=== PATIENT | male | born 1975 | race Caucasian/White ===

== ENCOUNTER → 2016-08-22 | Outpatient (CLI) | payer OTHER ==
[2016-08-22 10:14] LABS: BASO % 0.5 %; BASO ABS # 0.05 K/uL (0-0.2); COMPLETE YES; EOS % 6.2 %; HEMATOCRIT 43.1 % (42-52); IG% 0.2 %; LYMPH % 44.5 %; LYMPH ABS # 4.51 K/uL (1.2-3.4); MEAN CELL VOLUME 88.5 fL (80-100); MEAN CORPUSCULAR HEMOGLOBIN 31.4 pg (25-34); MEAN CORPUSCULAR HGB CONC 35.5 g/dl (32-36); MEAN PLATELET VOLUME 8.8 fL (7.4-10.4); MONO % 7.6 %; PLATELET COUNT 247 K/uL (130-400); RED BLOOD COUNT 4.87 M/uL (4.7-6.1); WHITE BLOOD COUNT 10.14 K/uL (4.8-10.8)
[2016-08-22 10:41] LABS: ALT/SGPT 45 U/L (12-78); BLOOD UREA NITROGEN 12 mg/dl (7-18); BUN/CREATININE RATIO 11.6 (10-20); CARBON DIOXIDE 28 mmol/L (21-32); CHLORIDE 103 mmol/L (98-107); CHOLESTEROL 222 mg/dl (0-200); GLUCOSE 103 mg/dl (70-99); POTASSIUM 3.5 mmol/L (3.5-5.1); SODIUM 140 mmol/L (136-145)
[2016-08-22 10:46] LABS: CALCIUM 8.8 mg/dl (8.5-10.1)
[2016-08-22 10:51] LABS: ALB/GLOB RATIO 1.2 (0.9-2); ALKALINE PHOSPHATASE 90 U/L (45-117); AST/SGOT 23 U/L (15-37); CHOLESTEROL/HDL RATIO 6.9; HDL CHOLESTEROL 32 mg/dl; LDL CHOLESTEROL CALCULATED 117 mg/dl; THYROID STIMULATING HORMONE 0.204 uIu/ml (0.300-4.500); TRIGLYCERIDES 363 mg/dl (0-150); VERY LOW DENSITY LIPOPROT CALC 73 mg/dl
== END | disposition home or self-care (01) ==
LOC: C.LAB 09:46
PROVIDERS: ATTEND Internal Medicine
DX: E78.2 Mixed hyperlipidemia (principal); E03.1 Congenital hypothyroidism without goiter; F90.9 Attention-deficit hyperactivity disorder, unspecified type; F32.9 Major depressive disorder, single episode, unspecified

== ENCOUNTER → 2017-02-25 | Outpatient (CLI) | payer OTHER ==
[2017-02-25 05:41] LABS: BASO % 0.6 %; BASO ABS # 0.06 K/uL (0-0.2); COMPLETE YES; EOS % 3.5 %; HEMATOCRIT 47.1 % (42-52); IG% 0.2 %; LYMPH % 24.2 %; MEAN CELL VOLUME 90.1 fL (80-100); MEAN CORPUSCULAR HEMOGLOBIN 32.7 pg (25-34); MEAN CORPUSCULAR HGB CONC 36.3 g/dl (32-36); MEAN PLATELET VOLUME 9.2 fL (7.4-10.4); MONO % 7.6 %; NEUT % 63.9 %; PLATELET COUNT 232 K/uL (130-400); RED BLOOD COUNT 5.23 M/uL (4.7-6.1); WHITE BLOOD COUNT 10.33 K/uL (4.8-10.8)
[2017-02-25 06:10] LABS: ALT/SGPT 50 U/L (12-78); BLOOD UREA NITROGEN 10 mg/dl (7-18); CALCIUM 8.9 mg/dl (8.5-10.1); CARBON DIOXIDE 28 mmol/L (21-32); CHLORIDE 104 mmol/L (98-107); CHOLESTEROL 245 mg/dl (0-200); CREATININE 1.07 mg/dl (0.60-1.40); GLUCOSE 103 mg/dl (70-99); POTASSIUM 4.3 mmol/L (3.5-5.1); SODIUM 137 mmol/L (136-145); TRIGLYCERIDES 454 mg/dl (0-150)
[2017-02-25 06:15] LABS: ALB/GLOB RATIO 1.3 (0.9-2); ALKALINE PHOSPHATASE 93 U/L (45-117); AST/SGOT 27 U/L (15-37); CHOLESTEROL/HDL RATIO 6.8; HDL CHOLESTEROL 36 mg/dl
[2017-02-25 07:06] LABS: ESTIMATED AVERAGE GLUCOSE 114 mg/dl; HA1C FLAG Normal (Normal)
== END | disposition home or self-care (01) ==
LOC: C.LAB 04:54
PROVIDERS: ATTEND Internal Medicine
DX: Z00.00 Encounter for general adult medical examination without abnormal findings (principal); E78.2 Mixed hyperlipidemia; E03.1 Congenital hypothyroidism without goiter; R73.01 Impaired fasting glucose; Z80.42 Family history of malignant neoplasm of prostate

== ENCOUNTER → 2017-05-19 | Outpatient (CLI) | payer OTHER ==
--- NOTE | 2017-05-19 20:18 | DIAGNOSTIC IMAGING REPORT ---
ORBITS FOR MRI HISTORY: 41 years-old Male R/O FOREIGN BODY history of foreign body of the orbits. Clearance for MRI. COMPARISON: None available TECHNIQUE: 3 views of the orbits FINDINGS: No radiopaque foreign body of the orbits identified. Paranasal sinuses appear clear. No facial bone fracture or dislocation. IMPRESSION: No opaque foreign body identified. The above report was generated using voice recognition software. It may contain grammatical, syntax or spelling errors. Electronically signed by: Cory Ayers M.D. 05/19/2017 8:16 PM Dictated Date/Time: 05/19/2017 8:15 PM
--- NOTE | 2017-05-19 23:22 | DIAGNOSTIC IMAGING REPORT ---
LUMBAR SPINE W/O CONTRAST CLINICAL HISTORY: 41 years-old Male with LEFT SIDED LOW BACK PAIN W/SCIATICA, LUMBAR. Chronic low back pain with left lower extremity neuropathy COMPARISON: None. TECHNIQUE: Multiplanar, multi sequence MRI of the lumbar spine was performed without intravenous contrast. FINDINGS: The large [id number] central sterile tech localizer images demonstrate no gross abnormality. No aortic aneurysm or adenopathy identified. Conus medullaris terminates at T12. Signal within the imaged thoracic spinal cord appears unremarkable. The cauda equina also appear to be within normal limits. No focal abnormality of the paraspinal tissues. There is no acute fracture, subluxation, focal bone marrow or soft tissue edema. Disc desiccation noted at L4-L5 and to a lesser extent at L3-L4. T12-L1: No central canal or neural foraminal stenosis. L1-L2: No central canal or neural foraminal stenosis. L2-L3: No central canal or neural foraminal stenosis. L3-L4: Minimal disc desiccation with small posterior disc bulge, mild facet arthrosis with ligamentum flavum thickening. There is flattening of the ventral thecal sac without significant central canal stenosis. Mild bilateral foraminal narrowing. L4-L5: Mild disc desiccation and intervertebral disc space narrowing with small circumferential annular disc bulge and posterior annular fissure. Additionally, there is mild ligamentum flavum thickening. There is mild flattening of the ventral thecal sac with mild bilateral foraminal narrowing. No significant central canal stenosis. 3 mm synovial cyst posterior to the left facet. L5-S1: No central canal or neural foraminal stenosis. IMPRESSION: 1. Mild intervertebral disc space narrowing with small circumferential annular disc bulge and posterior annular fissure at L4-L5 causes mild flattening of the ventral thecal sac along with mild bilateral foraminal narrowing. 2. Minimal disc desiccation with small posterior disc bulge, mild facet arthrosis and ligamentum flavum thickening at L3-L4 causes mild bilateral foraminal narrowing. 3. No high-grade central canal or foraminal stenosis. The above report was generated using voice recognition software. It may contain grammatical, syntax or spelling errors. Electronically signed by: Cory Ayers M.D. 05/19/2017 11:21 PM Dictated Date/Time: 05/19/2017 9:44 PM
== END | disposition home or self-care (01) ==
LOC: C.MRI 19:46
DX: M54.42 Lumbago with sciatica, left side (principal); G89.29 Other chronic pain; M47.816 Spondylosis without myelopathy or radiculopathy, lumbar region

== ENCOUNTER → 2017-06-29 | Outpatient (CLI) | payer OTHER ==
[~2017-06-29] MED LIST: AMPH30TA2 PO; FENO1CAP PO; GABA-112 PO; LEVO137T3 PO; OXYC15TA89 PO; SIMV20TA2 PO
== END | disposition home or self-care (01) ==
LOC: C.LAB 17:35
PROVIDERS: ATTEND Internal Medicine
DX: E03.1 Congenital hypothyroidism without goiter (principal)

== ENCOUNTER 2017-07-06 00:22 | Emergency (ER) | payer OTHER ==
[~2017-07-06] VITALS: Ht 182.9 cm; Wt 95.2 kg
[2017-07-06 00:29] VITALS: TEMP 36.9; Ht 182.9 cm; Wt 95.2 kg
[2017-07-06] MEDS ORDERED: LORAZEPAM 2 MG/ML 1 ML VIAL IV STA (00:46)
[2017-07-06] MEDS ORDERED: FENO1CAP PO (00:53)
[2017-07-06] MEDS ORDERED: OXYC15TA89 PO (00:53)
[2017-07-06] MEDS ORDERED: SIMV20TA2 PO (00:53)
[2017-07-06] MEDS ORDERED: LEVO137T3 PO (00:53)
[2017-07-06] MEDS ORDERED: GABA-112 PO (00:53)
[2017-07-06] MEDS ORDERED: AMPH30TA2 PO (00:53)
[2017-07-06 00:55] LABS: BASO ABS # 0.09 K/uL (0-0.2); EOS % 9.2 %; EOS ABS # 0.82 K/uL (0-0.5); HEMATOCRIT 44.5 % (42-52); HEMOGLOBIN 15.8 g/dL (14.0-18.0); IG# 0.03 K/uL (0.00-0.02); LYMPH % 43.3 %; LYMPH ABS # 3.87 K/uL (1.2-3.4); MEAN CELL VOLUME 88.5 fL (80-100); MEAN CORPUSCULAR HEMOGLOBIN 31.4 pg (25-34); MEAN CORPUSCULAR HGB CONC 35.5 g/dl (32-36); MEAN PLATELET VOLUME 8.9 fL (7.4-10.4); MONO ABS # 0.63 K/uL (0.11-0.59); NEUT % 39.2 %; PLATELET COUNT 242 K/uL (130-400); RED CELL DISTRIBUTION WIDTH CV 12.6 % (11.5-14.5); WHITE BLOOD COUNT 8.94 K/uL (4.8-10.8)
[2017-07-06 00:57] VITALS: O2SAT 99
[2017-07-06 01:31] LABS: ALBUMIN 4.1 gm/dl (3.4-5.0); ALKALINE PHOSPHATASE 92 U/L (45-117); ALT/SGPT 74 U/L (12-78); BLOOD UREA NITROGEN 12 mg/dl (7-18); CARBON DIOXIDE 30 mmol/L (21-32); CREATININE 1.15 mg/dl (0.60-1.40); GLUCOSE 110 mg/dl (70-99); LIPASE 140 U/L (73-393); TOTAL PROTEIN 7.7 gm/dl (6.4-8.2)
[2017-07-06 01:34] LABS: POTASSIUM 3.7 mmol/L (3.5-5.1); SODIUM 138 mmol/L (136-145)
[2017-07-06 01:39] LABS: AST/SGOT 39 U/L (15-37)
[2017-07-06 02:36] VITALS: BP 137/81; PULSE 76; O2SAT 99
--- NOTE | 2017-07-06 03:02 | EMERGENCY ROOM VISIT NOTE ---
History First contact with patient: 00:30 Chief Complaint: CHEST PAIN Stated Complaint: CHEST PAIN Nursing Triage Summary: see triage note History of Present Illness The patient is a 41 year old male who presents to the Emergency Room with complaints of chest pain, palpitations, intermittent sinus problems and back pain for the past several months. Patient states his family doctor changed his Synthroid medicine today but has not started his new dose. No prior Holter monitor in the past. No prior cardiac testing. Patient states he might of had a heart attack in the past but they received evaluation by a field sales representative or had a stress test or an echo. Patient denies high blood pressure, cholesterol, diabetes or drug use. He states he does not smoke. No heavy alcohol use. No family history of heart disease. Patient denies dysphagia, abdominal pain, vomiting, diarrhea, fever, chills, neck stiffness, numbness or tingling, localized weakness. Review of Systems An 10 system review of systems was completed with positives and pertinent negatives listed in the HPI. Past Medical/Surgical History Hypothyroidism, tonsillectomy, back pain Social History Smoking Status: Never Smoker Drug Use: none Marital Status: in relationship Occupation Status: employed Current/Historical Medications Scheduled Amphetamine-Dextroamphetamine 30MG (Adderall 30MG), Unknown Dose PO DAILY Fenofibrate Micronized (Fenofibrate), 1 TAB PO DAILY Levothyroxine Sodium (Levothyroxine Sodium), 137 MCG PO DAILY Oxycodone Hcl (Oxycontin), 15 MG PO TID Simvastatin (Zocor), 20 MG PO QPM Scheduled PRN Gabapentin (Neurontin), 100 MG PO DIRECTED PRN for Pain Physical Exam Vital Signs Date Time Temp Pulse Resp B/P (MAP) Pulse Ox O2 Delivery O2 Flow Rate FiO2 07/06/17 02:36 76 16 137/81 99 Room Air 07/06/17 01:14 78 20 147/84 98 Room Air 07/06/17 00:57 99 Room Air 07/06/17 00:57 99 Room Air 07/06/17 00:38 79 07/06/17 00:34 98 Room Air 07/06/17 00:29 36.9 85 19 177/104 100 Room Air Physical Exam VITALS: Vitals are noted on the nurse's note and reviewed by myself. Vital signs hypertensive. GENERAL: White male anxious appearing, in no acute distress, nondiaphoretic, well-developed well-nourished. SKIN: The skin was without rashes, erythema, edema, or bruising. There is no tenting of the skin. Capillary reflex less than 2 seconds. HEAD: Normocephalic atraumatic. EARS: External auditory canals clear, tympanic membranes pearly [place] without erythema or effusion bilaterally. EYES: Pupils equal round and reactive to light and accommodation. Conjunctivae without injection, sclerae without icterus. Extraocular movements intact. NOSE: Patent, turbinates without inflammation or discharge. No sinus tenderness. MOUTH: Mucous membranes moist. Pharynx without erythema or exudate. Uvula midline. Airway patent. Tongue does not deviate. NECK: Supple without nuchal rigidity. No lymphadenopathy. No thyromegaly. Cervical spine is nontender. No JVD. HEART: Regular rate and rhythm without murmurs gallops or rubs. LUNGS: Clear to auscultation bilaterally without wheezes, rales or rhonchi. No retractions or accessory muscle use. ABDOMEN: Positive bowel sounds x 4. Normal tympanic percussion. Soft, nontender, without masses or organomegaly. So sign negative. No guarding or rebound tenderness. No CVA tenderness MUSCULOSKELETAL: No muscle atrophy, erythema, or edema noted. NEURO: Patient was alert and oriented to person place and time. Normal sensation to light and sharp touch. No focal neurological deficits. Medical Decision & Procedures Laboratory Results 07/06/17 00:30 Red Blood Count 5.03, Mean Corpuscular Volume 88.5, Mean Corpuscular Hemoglobin 31.4, Mean Corpuscular Hemoglobin Concent 35.5, Mean Platelet Volume 8.9, Neutrophils (%) (Auto) 39.2, Lymphocytes (%) (Auto) 43.3, Monocytes (%) (Auto) 7.0, Eosinophils (%) (Auto) 9.2, Basophils (%) (Auto) 1.0, Neutrophils # (Auto) 3.50, Lymphocytes # (Auto) 3.87, Monocytes # (Auto) 0.63, Eosinophils # (Auto) 0.82, Basophils # (Auto) 0.09 07/06/17 00:30 Test 07/06/17 00:30 07/06/17 01:05 07/06/17 01:55 White Blood Count 8.94 K/uL (4.8-10.8) Red Blood Count 5.03 M/uL (4.7-6.1) Hemoglobin 15.8 g/dL (14.0-18.0) Hematocrit 44.5 % (42-52) Mean Corpuscular Volume 88.5 fL (80-100) Mean Corpuscular Hemoglobin 31.4 pg (25-34) Mean Corpuscular Hemoglobin Concent 35.5 g/dl (32-36) Platelet Count 242 K/uL (130-400) Mean Platelet Volume 8.9 fL (7.4-10.4) Neutrophils (%) (Auto) 39.2 % Lymphocytes (%) (Auto) 43.3 % Monocytes (%) (Auto) 7.0 % Eosinophils (%) (Auto) 9.2 % Basophils (%) (Auto) 1.0 % Neutrophils # (Auto) 3.50 K/uL (1.4-6.5) Lymphocytes # (Auto) 3.87 K/uL (1.2-3.4) Monocytes # (Auto) 0.63 K/uL (0.11-0.59) Eosinophils # (Auto) 0.82 K/uL (0-0.5) Basophils # (Auto) 0.09 K/uL (0-0.2) RDW Standard Deviation 40.0 fL (36.4-46.3) RDW Coefficient of Variation 12.6 % (11.5-14.5) Immature Granulocyte % (Auto) 0.3 % Immature Granulocyte # (Auto) 0.03 K/uL (0.00-0.02) Anion Gap 5.0 mmol/L (3-11) Est Creatinine Clear Calc Drug Dose 99.2 ml/min Estimated GFR () 89.8 Estimated GFR (Non- 77.5 BUN/Creatinine Ratio 10.7 (10-20) Calcium Level 9.0 mg/dl (8.5-10.1) Magnesium Level 2.1 mg/dl (1.8-2.4) Total Bilirubin 0.4 mg/dl (0.2-1) Direct Bilirubin < 0.1 mg/dl (0-0.2) Aspartate Amino Transf (AST/SGOT) 39 U/L (15-37) Alanine Aminotransferase (ALT/SGPT) 74 U/L (12-78) Alkaline Phosphatase 92 U/L (45-117) Troponin I < 0.015 ng/ml (0-0.045) Total Protein 7.7 gm/dl (6.4-8.2) Albumin 4.1 gm/dl (3.4-5.0) Lipase 140 U/L (73-393) Thyroid Stimulating Hormone (TSH) 0.177 uIu/ml (0.300-4.500) Bedside D-Dimer 146 ng/mlFEU (0-450) Bedside Troponin I < 0.030 ng/ml (0-0.045) Medications Administered Medications (Trade) Dose Ordered Sig/Dimitri Route Start Time Stop Time Status Last Admin Dose Admin Lorazepam (Ativan Inj) 1 mg NOW STAT IV 07/06/17 00:46 07/06/17 00:47 DC 07/06/17 01:08 1 MG ED Course Prior records/ancillary studies reviewed. Triage Nursing notes reviewed. The patient's history was concerning for chest pain and palpitations. Differential diagnosis: Etiologies such as anxiety, cardiac ischemia, aortic dissection, pulmonary embolism, pneumonia, pneumothorax, musculoskeletal, infections, pericarditis, myocarditis, esophageal rupture, gastrointestinal, as well as others were entertained. Physical examination: As above. ER treatment provided: Ativan On reassessment the patient felt better. Diagnostic interpretation by me: The electrocardiogram was negative for pathologic change. Normal sinus, normal intervals, no acute ST-T wave changes, rate of 83. Impression normal sinus rhythm interpreted by myself The labs revealed 2 negative troponins. Negative d-dimer. Slightly low TSH. Patient was aware of this. Imaging studies: Chest x-ray with no acute consolidation, pneumothorax or free of my interpretation HEART SCORE: Hx: high/mod/low suspicion: 0 ECG: ST depression/nonspecific changes/normal: 0 Age: Greater than 65/45-64/less than 45: 0 Risk factors: (Hypertension, hyperlipidemia, diabetes, coronary disease, tobacco use, cocaine use): 0 Troponin: Greater than 2 times normal limits/1-2 times normal limits/normal: 0 Total: 0 Symptoms of DVT 3pt: 0 Alternative diagnoses better explains illness 3pts: 0 Tachycardia greater than 100 1.5 pts 0 Immobilization greater than 3 days or surgery in the previous 4 weeks 1.5 pts: 0 Prior history of DVT or PE 1.5 pts: 0 Presence of hemoptysis 1pt: 0 Presence of malignancy 1pt: 0 (Score greater than 6 is high probability, score 2-6 moderate probability, score less than 2 low probability) Total: 0 Exam and history seem consistent with ongoing chronic intermittent chest pains and palpitations for the past several months who has had intermittent sinus problems. Patient was quite anxious appearing. He felt better after the Ativan. He was advised to follow-up family care for his ongoing symptoms and for outpatient Holter monitor. He was advised to start his new dose of Synthroid. He was informed to have it rechecked in 6 weeks. Patient had a low heart score and well score. His symptoms have been ongoing for months. I do not believe is cardiac in etiology or blood clot. Patient then discharge wanted his urine checked and a dip was done that showed no signs of infection. Patient seems quite anxious and had multiple concerns. He was informed to follow-up family care for his ongoing chronic needs. He verbalized understanding this. He was advised to return to the ER meaty for chest pain, difficulty breathing, worsening signs or symptoms or as needed. By the evaluation outlined above emergent etiologies such as cardiac ischemia, aortic dissection, pulmonary embolism, pneumonia, pneumothorax, infections, pericarditis, myocarditis, gastrointestinal, as well as others were deemed relatively unlikely. The pt informed about the findings as listed above. All questions were answered and pleased with the treatment. Return instructions were outlined and the patient was discharged in stable condition. Referral: The patient was referred back to primary care physician for follow-up in 2 to 3 days for a recheck of the current condition. Case reviewed with my attending The chart was completed utilizing [employer] Speech voice recognition software. Grammatical errors, random word insertions, pronoun errors, and incomplete sentences are an occassional consequence of this system due to software limitations, ambient noise, and hardware issues. Any formal questions or concerns about the content, text, or information contained within the body of this dictation should be directly addressed to the physician orthotics prosthetics assistant for clarification. Medical Decision As above Medication Reconcilliation Current Medication List: was personally reviewed by me Blood Pressure Screening Patient's blood pressure: Elevated blood pressure Blood pressure disposition: Elevated BP felt to be situational Impression Primary Impression: Chest pain Additional Impression: Palpitations Departure Information Dispostion Home / Self-Care Condition GOOD Forms Call Back Authorization, HOME CARE DOCUMENTATION FORM, IMPORTANT VISIT INFORMATION Patient Instructions [facility] Additional Instructions DO NOT drive, drink alcohol, operate machinery, or perform dangerous activities today. You were given medications in the ER that can affect your ability to safely function or operate a vehicle. Your thyroid levels are slightly low which is concerning for too much Synthroid medicine. Follow-up with family care doctor for this. Recommend outpatient Holter monitor. Decrease caffeine, alcohol, tobacco and salt intake. Avoid stimulants near bedtime. Ibuprofen(Motrin, Advil) may be used for fever or pain. Use 600mg every six hours as needed. Take with food. Avoid using more than 2400mg in a 24 hour period. Do not use 2400mg per day for more than three consecutive days without physician direction. Prolonged inappropriate use can lead to stomach upset or ulcers. (AND/OR) Acetaminophen(Tylenol) may be used for fever or pain. Use 1000mg every six hours as needed. Avoid using more than 3000mg in a 24 hour period. Rest and drink plenty of fluids as tolerated. Continue current medications. Avoid strenuous activities and anything that worsens your symptoms. Resume normal activities once your symptoms resolve. Return to the ER immediately for worsening or persistent prolonged palpitations , abdominal pain, vomiting, fevers, chest pains, difficulty breathing, worsening of your condition, or as needed. Follow up with your primary physician in 2-3 days for a recheck of your current condition. Problem Qualifiers Primary Impression: Chest pain Chest pain type: unspecified Qualified Codes: R07.9 - Chest pain, unspecified
--- NOTE | 2017-07-06 07:21 | DIAGNOSTIC IMAGING REPORT ---
SINGLE VIEW CHEST CLINICAL HISTORY: Atypical chest pain. FINDINGS: An AP, portable, upright chest radiograph is obtained. No prior studies are available for comparison at the time of dictation. The cardiomediastinal silhouette is unremarkable. The lungs and pleural spaces are clear. No pneumothorax is seen. The bony thorax is grossly intact. IMPRESSION: No active disease in the chest. Electronically signed by: Philipp Hernández M.D. 07/06/2017 7:20 AM Dictated Date/Time: 07/06/2017 7:20 AM
== END 2017-07-06 02:50 | disposition home or self-care (01) ==
LOC: C.EDB 00:23
DX: R07.9 Chest pain, unspecified (principal); R00.2 Palpitations; F41.9 Anxiety disorder, unspecified; E03.9 Hypothyroidism, unspecified; Z79.899 Other long term (current) drug therapy